=== PATIENT | female | born 1990 | race Caucasian/White ===

== ENCOUNTER 2016-10-09 21:16 | Emergency (ER) | payer OTHER ==
[2016-10-09 21:39] VITALS: BP 129/68; PULSE 93; TEMP 98.3; BMI 36.3
== END 2016-10-09 22:18 | disposition left against medical advice (07) ==
LOC: JERFT 21:16 → JER 21:16 → JERFT 22:18
DX: Z53.21 Procedure and treatment not carried out due to patient leaving prior to being seen by health care provider (principal)
CPT/HCPCS: 99281-25

== ENCOUNTER 2017-03-13 13:31 | Emergency (ER) | payer OTHER ==
[2017-03-13 13:34] VITALS: BP 109/71; PULSE 88; TEMP 98.1; BMI 35.7
--- NOTE | 2017-03-13 13:52 | PDOC ---
History of Present Illness - General Chief Complaint: Chest Pain Stated Complaint: CHEST DISCOMFORT Time Seen by Provider: 03/13/17 13:49 History Source: Patient Exam Limitations: No Limitations - History of Present Illness Initial Comments: 03/13/17 13:49 Patient is a [26-year-old female, no significant medical history currently no medication reports 2 day history of left-sided chest pain. Pain worse at night. Pain is not reproducible, Non radiating. Denies trauma. No SOB, VSS, No radiating pain, no cough, no wheezing, no hemopysis. NO back pain or jaw pain. No fever, no chills. Denies trauma. No palpatations. Unknown if related to eating. No abdominal pain. Past Medical History: Denies. Allergies: No known allergies Medications: None Family History: Non-contributory Social History: Denies smoking, alcohol use, or IVDU Vital signs on arrival are notable for pulse of 96. Review of Systems GENERAL/CONSTITUTIONAL: No fever or chills. No weakness. No weight change. HEAD, EYES, EARS, NOSE AND THROAT: No change in vision. No ear pain or discharge. No sore throat. CARDIOVASCULAR: Left chest pain or shortness of breath. RESPIRATORY: No cough, wheezing, or hemoptysis. GASTROINTESTINAL: No nausea, vomiting, diarrhea or constipation. No rectal bleeding. GENITOURINARY: No dysuria, frequency, or change in urination. MUSCULOSKELETAL: No joint or muscle swelling or pain. No neck or back pain. SKIN AND BREASTS: No rash or easy bruising. NEUROLOGIC: No headache, vertigo, loss of consciousness, or loss of sensation. PSYCHIATRIC: No depression or anxiety. ENDOCRINE: No increased thirst. No abnormal weight change. HEMATOLOGIC/LYMPHATIC: No anemia, easy bleeding, or history of blood clots. ALLERGIC/IMMUNOLOGIC: No hives or skin allergy. No latex allergy. Physical Exam: GENERAL: The patient is awake, alert, and fully oriented, in no acute distress. HEAD: Normal with no signs of trauma. EYES: Pupils equal, round and reactive to light, extraocular movements intact, sclera anicteric, conjunctiva clear. ENT: Ears normal, nares patent, oropharynx clear without exudates. Moist mucous membranes. No uvula deviation NECK: Normal range of motion, supple without lymphadenopathy, JVD, or masses. LUNGS: Breath sounds equal, clear to auscultation bilaterally. No wheezes, and no crackles. HEART: Regular rate and rhythm, normal S1 and S2 without murmur, rub or gallop. ABDOMEN: Soft, nontender, normoactive bowel sounds. No guarding, no rebound. No masses. No bruising or abrasions MUSCULOSKELETAL: Normal range of motion, no edema. No clubbing or cyanosis. No cords, erythema, or tenderness. No CVA Tenderness with fist palpation. NEUROLOGICAL: Cranial nerves II through XII grossly intact. Normal speech, normal gait. SKIN: Warm, Dry, normal turgor, no rashes or lesions noted. 03/13/17 14:15 03/13/17 14:23 Past History - Past Medical History Allergies/Adverse Reactions: Allergies Allergy/AdvReac Type Severity Reaction Status Date / Time No Known Allergies Allergy Verified 03/13/17 13:34 Home Medications: Ambulatory Orders Omeprazole 20 mg PO DAILY #30 capsule. 03/13/17 Asthma: Yes Cancer: No Cardiac Disorders: No Diabetes: No HTN: No Seizures: No Thyroid Disease: No - Immunization History Immunization Up to Date: Yes - Psycho/Social/Smoking Cessation Hx Suicidal Ideation: No Smoking History: Never smoked Have you smoked in the past 12 months: No Number of Cigarettes Smoked Daily: 0 Hx Alcohol Use: No Drug/Substance Use Hx: No Substance Use Type: None Hx Substance Use Treatment: No *Physical Exam - Vital Signs Last Vital Signs Temp Pulse Resp BP Pulse Ox 98.1 F 88 20 109/71 99 03/13/17 13:31 03/13/17 13:31 03/13/17 13:31 03/13/17 13:31 03/13/17 13:31 Heart Score/ECG Review - Electrocardiogram EKG: Normal - Age Age: </= 45 ED Treatment Course - ADDITIONAL ORDERS Additional order review: Laboratory Results 03/13/17 13:46 Urine HCG, Qual Negative - RADIOLOGY Radiology Studies Ordered: Category Date Time Status CHEST PA & LAT [RAD] Stat Radiology 03/13/17 14:58 Taken - Medications Given in the ED: ED Medications Discontinued Medications Generic Name Dose Route Start Last Admin Trade Name Freq PRN Reason Stop Dose Admin Al Hydroxide/Mg Hydroxide 30 ml 03/13/17 14:05 03/13/17 14:37 Mylanta Oral Suspension - PO 03/13/17 14:06 30 ml ONCE ONE Administration Ranitidine HCl 150 mg 03/13/17 14:06 03/13/17 14:37 Zantac - PO 03/13/17 14:07 150 mg ONCE ONE Administration Medical Decision Making - Medical Decision Making 03/13/17 13:51 A/P: Patient with left-sided chest pain, for 2 days denies trauma. No shortness of breath, no radiating pain, pain is not reproducible. Unsure if it's related to meals. Urine ordered, chest x-ray, EKG. Zantac and Maalox. Twelve-lead EKG was performed and reviewed by me. There is normal sinus rhythm with a normal rate of 81. R axis of 58. The intervals are normal. There are no ST or T wave abnormalities. Impression: Normal twelve-lead EKG 03/13/17 14:26 03/13/17 15:37 Feels 100% better after medication still awaiting x-ray results of chest. 03/13/17 16:23 Wet read xray it or for acute cardiopulmonary disease. We'll DC patient home, GERD. Patient reports that she feels 100 percent better. Will DC on Zantac. Follow up with PMD. I discussed the physical exam findings, ancillary test results and final diagnoses with the patient. I answered all of the patient's questions. The patient was satisfied with the care received and felt comfortable with the discharge plan and treatment plan. The patient will call to arrange follow-up and will return to the Emergency Department with any new, persistent or worsening symptoms. *DC/Admit/Observation/Transfer Diagnosis at time of Disposition: GERD (gastroesophageal reflux disease) Qualifiers: Esophagitis presence: without esophagitis Qualified Code(s): K21.9 - Gastro- esophageal reflux disease without esophagitis - Discharge Dispostion Disposition: HOME Condition at time of disposition: Good Admit: No - Prescriptions Prescriptions: Omeprazole 20 mg PO DAILY #30 capsule.dr - Referrals Referrals: Erika Gillette MD [Primary Care Provider] - - Patient Instructions Printed Discharge Instructions: DI for Atypical Chest Pain Additional Instructions: [place] diet Please refrain from fried foods, milk, sugar. If continues recommend follow-up with gastroenterology Recommend follow-up with PMD If any increased pain, shortness of breath, back pain, or any other concerns return to ER - Post Discharge Activity Work/School Note: Back to Work
[2017-03-13] MEDS ORDERED: MAG HYDROX/AL HYDROX/SIMETH 30 ML UNIT-DOSE CUP PO ONE (14:05)
[2017-03-13] MEDS ORDERED: RANITIDINE HCL 150 MG TABLET (FP) PO ONE (14:06)
[2017-03-13] MEDS ORDERED: RANITIDINE HCL 150 MG TABLET (FP) ONE (14:35)
[2017-03-13] MEDS ORDERED: MAG HYDROX/AL HYDROX/SIMETH 30 ML UNIT-DOSE CUP ONE (14:35)
--- NOTE | 2017-03-15 17:29 | EKG ---
Test Reason : Blood Pressure : / mmHG Vent. Rate : 081 BPM Atrial Rate : 081 BPM P-R Int : 138 ms QRS Dur : 088 ms QT Int : 370 ms P-R-T Axes : 039 058 043 degrees QTc Int : 429 ms NORMAL SINUS RHYTHM NORMAL ECG NO PREVIOUS ECGS AVAILABLE Confirmed by MD BENNY, WARD ([id number]) on 03/15/2017 5:29:03 PM Referred By: Confirmed By:WARD ZAPATA MD
== END 2017-03-13 16:51 | disposition home or self-care (01) ==
LOC: JERFT 13:31
DX: K21.9 Gastro-esophageal reflux disease without esophagitis (principal)
CPT/HCPCS: 71020-TC; 84703; 93005; 93010; 99281-25

== ENCOUNTER 2018-12-30 20:44 | Emergency (ER) | payer OTHER ==
[2018-12-30 20:47] VITALS: BMI 34.4
--- NOTE | 2018-12-30 20:49 | PDOC ---
Rapid Medical Evaluation Chief Complaint: Urinary Problem Time Seen by Provider: 12/30/18 20:45 Medical Evaluation: Allergies Allergy/AdvReac Type Severity Reaction Status Date / Time No Known Allergies Allergy Verified 03/13/17 13:34 12/30/18 20:46 28 year old female with left groin pain and urinary symptoms since this morning. denies fevel chills, vaginal bleeding/ discharge. LMP: 11/28/2018 Pe: patient alert ox3 A: groin pain P; ua, urine culture urien Discharge Disposition - Diagnosis Urinary tract infection symptoms - Referrals - Patient Instructions - Post Discharge Activity
[2018-12-30 21:39] LABS: URINE APPEARANCE CLEAR; URINE BACTERIA 268.8 /hpf (NEGATIVE); URINE BILIRUBIN NEGATIVE (NEGATIVE); URINE CASTS 1 /lpf (0-8); URINE COLOR YELLOW; URINE GLUCOSE (UA) NEGATIVE (NEGATIVE); URINE KETONE NEGATIVE (NEGATIVE); URINE LEUK ESTERASE TRACE (NEGATIVE); URINE NITRITE NEGATIVE (NEGATIVE); URINE PROTEIN NEGATIVE (NEGATIVE); URINE RBC 2 /hpf (0-4); URINE UROBILINOGEN 0.2 mg/dL (0.2-1.0); URINE WBC 8 /hpf (0-5)
[2018-12-30] MEDS ORDERED: ACETAMINOPHEN 325 MG TABLET (FP) PO ONE (21:40)
--- NOTE | 2018-12-30 21:42 | PDOC ---
History of Present Illness - General History Source: Patient Exam Limitations: No Limitations <GabrielSwapna - Last Filed: 12/30/18 22:48> <Beverly Osborn - Last Filed: 12/30/18 23:01> - General Chief Complaint: Pain Stated Complaint: PELVIC PAIN Time Seen by Provider: 12/30/18 20:45 Past History - Past Medical History Asthma: Yes Cancer: No Cardiac Disorders: No COPD: No Diabetes: No HTN: No Seizures: No Thyroid Disease: No - Immunization History Immunization Up to Date: Yes - Suicide/Smoking/Psychosocial Hx Smoking History: Never smoked Have you smoked in the past 12 months: No Number of Cigarettes Smoked Daily: 0 Hx Alcohol Use: No Drug/Substance Use Hx: No Substance Use Type: None Hx Substance Use Treatment: No <Swapna Rios - Last Filed: 12/30/18 22:48> <Beverly Osborn - Last Filed: 12/30/18 23:01> - Past Medical History Allergies/Adverse Reactions: Allergies Allergy/AdvReac Type Severity Reaction Status Date / Time No Known Allergies Allergy Verified 12/30/18 20:48 Home Medications: Ambulatory Orders Omeprazole 20 mg PO DAILY #30 capsule. 03/13/17 *Physical Exam - Vital Signs Last Vital Signs Temp Pulse Resp BP Pulse Ox 98.1 F 86 18 135/80 99 12/30/18 20:45 12/30/18 20:45 12/30/18 20:45 12/30/18 20:45 12/30/18 20:45 - Physical Exam General Appearance: No: Apparent Distress Respiratory/Chest: positive: Lungs Clear, Normal Breath Sounds. negative: Respiratory Distress Cardiovascular: positive: Regular Rhythm, Regular Rate, S1, S2. negative: Murmur Female Pelvic Exam: positive: adnexal tenderness (along L adnexa). negative: CMT, discharge, vaginal bleeding Gastrointestinal/Abdominal: positive: Normal Bowel Sounds, Soft. negative: Tender, Distended, Guarding, Rebound Musculoskeletal: negative: CVA Tenderness Neurologic: positive: Fully Oriented, Alert, Normal Mood/Affect <Swapna Rios - Last Filed: 12/30/18 22:48> - Vital Signs Last Vital Signs Temp Pulse Resp BP Pulse Ox 98.1 F 86 18 135/80 99 12/30/18 20:45 12/30/18 20:45 12/30/18 20:45 12/30/18 20:45 12/30/18 20:45 <Beverly Osborn - Last Filed: 12/30/18 23:01> ED Treatment Course - RADIOLOGY Radiology Studies Ordered: Category Date Time Status TRANSVAGINAL ULTRASOUND US [US] Stat Ultrasound 12/30/18 21:32 Ordered <Swapna Rios - Last Filed: 12/30/18 22:48> - ADDITIONAL ORDERS Additional order review: Laboratory Results 12/30/18 21:18 Urine Color Yellow Urine Appearance Clear Urine pH 5.0 Ur Specific [place] 1.016 Urine Protein Negative Urine Glucose (UA) Negative Urine Ketones Negative Urine Blood Negative Urine Nitrite Negative Urine Bilirubin Negative Urine Urobilinogen 0.2 Ur Leukocyte Esterase Trace Urine WBC (Auto) 8 Urine RBC (Auto) 2 Urine Casts (Auto) 1 U Epithel Cells (Auto) 5.0 Urine Bacteria (Auto) 268.8 - Medications Given in the ED: ED Medications Discontinued Medications Generic Name Dose Route Start Last Admin Trade Name Freq PRN Reason Stop Dose Admin Acetaminophen 975 mg 12/30/18 21:40 12/30/18 21:52 Tylenol - PO 12/30/18 21:41 975 mg ONCE ONE Administration <Beverly Osborn - Last Filed: 12/30/18 23:01> Medical Decision Making - Medical Decision Making 28 y/o F hx of asthma, presents with L sided pelvic pain from yesterday. Pain is worse when urinating but does not have burning on urination. Denies fever, chills, sob, cp, abd pain, n/v/d, hematuria, unusual vag discharge. Is sexually active with 1 partner; denies hx of STDs. LNMP 3/15 Consider UTI, ovarian cyst; less concerned for ovarian torsion Plan: UA, UCx, UCG, pelvic sono 12/30/18 21:40 Pelvic ultrasound negative without any acute findings UA negative Patient having no pain after receiving Tylenol Advised f/u with her etl developer Stable for dc 12/30/18 22:48 <Swapna Rios - Last Filed: 12/30/18 22:48> - Medical Decision Making The patient was seen and evaluated in conjunction with midlevel provider under my direct supervision, ancillary studies were reviewed. I agree with the plan as outlined by EZEKIEL Rios. HPI, workup/dispo as outlined. VS reviewed, wnl. pelvic exam by EZEKIEL, noted for left adnexal tenderness, but otherwise unremarkable. clinically low suspicion for pelvic pathology/torsion. Pelvic US unremarkable, no e/o torsion or pelvic pathology, prominant subcm follicles on left UA_WBC <10, unremarkable, no urinary sx to suggest infection, defer abx for now until cultures which is reasonable. prior urine cultures neg. hcg_neg anticipate discharge, supportive care, analgesia and coal unloader f/u. 12/30/18 21:57 12/30/18 22:59 12/30/18 23:00 <Beverly Osborn - Last Filed: 12/30/18 23:01> *DC/Admit/Observation/Transfer - Discharge Dispostion Decision to Admit order: No <Swapna Rios - Last Filed: 12/30/18 22:48> <Beverly Osborn - Last Filed: 12/30/18 23:01> Diagnosis at time of Disposition: Pelvic pain - Discharge Dispostion Disposition: HOME Condition at time of disposition: Stable - Referrals Referrals: Erika Gillette MD [Primary Care Provider] - 2 Days - Patient Instructions Printed Discharge Instructions: DI for Pelvic Pain Additional Instructions: Thank you for choosing [facility]. It was a pleasure taking care of you. Your urine was negative for infection Your pelvic ultrasound was also normal Please follow-up with your etl developer for further evaluation of your symptoms Return to the Emergency Department if your symptoms worsen or persist or have other concerning symptoms. - Post Discharge Activity
[2018-12-30] MEDS ORDERED: ACETAMINOPHEN 325 MG TABLET (FP) ONE (21:48)
[2018-12-30 21:58] LABS: HCG,QUALITATIVE URINE Negative
[2018-12-30 23:14] VITALS: BP 134/78; PULSE 80; TEMP 97.8
== END 2018-12-30 23:00 | disposition home or self-care (01) ==
LOC: JER 20:44
DX: R10.2 Pelvic and perineal pain (principal)
CPT/HCPCS: 76830-TC; 81003; 84703; 87086; 87186; 99282-25

== ENCOUNTER 2019-01-04 00:30 | Emergency (ER) | payer OTHER ==
[2019-01-04 00:51] VITALS: BP 125/80; PULSE 68; TEMP 98.3
--- NOTE | 2019-01-04 00:57 | PDOC ---
History of Present Illness - General Chief Complaint: Sore Throat Stated Complaint: THROAT PAIN Time Seen by Provider: 01/04/19 00:46 History Source: Patient Exam Limitations: No Limitations - History of Present Illness Initial Comments: 01/04/19 00:50 HISTORY OF PRESENT ILLNESS: 28-year-old woman past medical history of asthma presents emergency room for evaluation of sore throat for 2 days. Patient states her child was recently diagnosed with streptococcal pharyngitis is currently being treated with amoxicillin. She reports sharing utensils and water bottles with her daughter prior to her diagnosis. She denies fevers, chills, abdominal pain, nausea, vomiting. No recent travel or sick contacts. PAST MEDICAL HISTORY: asthma SURGICAL HISTORY: Denies ALLERGIES: No known drug allergies REVIEW OF SYSTEMS General/Constitutional: Denies fever or chills. Denies weakness, weight change. HEENT: see HPI Cardiovascular: Denies chest pain or shortness of breath. Respiratory: Denies cough, wheezing, or hemoptysis. Gastrointestinal: Denies nausea, vomiting, diarrhea or constipation. Denies rectal bleeding. Genitourinary: Denies dysuria, frequency, or change in urination. Musculoskeletal: Denies joint or muscle swelling or pain. Denies neck or back pain. Skin and breasts: Denies rash or easy bruising. Neurologic: Denies headache, vertigo, loss of consciousness, or loss of sensation. Psychiatric: Denies depression or anxiety. Endocrine: Denies increased thirst. Denies abnormal weight change. Hematologic/Lymphatic: Denies anemia, easy bleeding, or history of blood clots. Allergic/Immunologic: Denies hives or skin allergy. Denies latex allergy. PHYSICAL EXAM General Appearance: Well-appearing, appropriately dressed. No apparent distress , no intoxication. HEENT: EOMI, PERRLA, normal ENT inspection, normal voice, TMs normal. No conjunctival pallor. No photophobia, scleral icterus. Oropharynx erythematous with 2+ tonsils and exudates present bilaterally. No lesions present in the oropharynx. Halitosis present. Neck: Supple. Trachea midline. No tenderness, rigidity, carotid bruit, stridor , or thyromegaly. Tender anterior cervical lymphadenopathy noted. Respiratory/Chest: Lungs CTAB. No shortness of breath, chest tenderness, respiratory distress, accessory muscle use. No crackles, rales, rhonchi, stridor , wheezing, dullness Cardiovascular: RRR. S1, S2. No JVD, murmur, bradycardia, tachycardia. Vascular Pulses: Dorsalis-Pedis (R): 2+, Dorsalis-Pedis (L): 2+ 01/04/19 00:55 Past History - Past Medical History Allergies/Adverse Reactions: Allergies Allergy/AdvReac Type Severity Reaction Status Date / Time No Known Allergies Allergy Verified 01/04/19 00:47 Home Medications: Ambulatory Orders Omeprazole 20 mg PO DAILY #30 capsule. 03/13/17 Amoxicillin - [Amoxicillin 500mg Capsule -] 500 mg PO BID #20 capsule 01/04/19 Asthma: Yes Cancer: No Cardiac Disorders: No COPD: No Diabetes: No HTN: No Seizures: No Thyroid Disease: No - Immunization History Immunization Up to Date: Yes - Suicide/Smoking/Psychosocial Hx Smoking History: Unknown if ever smoked Have you smoked in the past 12 months: No Number of Cigarettes Smoked Daily: 0 Hx Alcohol Use: No Drug/Substance Use Hx: No Substance Use Type: None Hx Substance Use Treatment: No *Physical Exam - Vital Signs Last Vital Signs Temp Pulse Resp BP Pulse Ox 98.3 F 68 17 125/80 98 01/04/19 00:44 01/04/19 00:44 01/04/19 00:44 01/04/19 00:44 01/04/19 00:44 Medical Decision Making - Medical Decision Making 01/04/19 00:54 A/P: 28-year-old woman with pharyngitis 2+ tonsils present bilaterally Exudate present to bilateral tonsils No lesions are present in the oropharynx Patient with tender anterior cervical lymphadenopathy Halitosis present Clinically the patient has a streptococcal pharyngitis and given proximity to her daughter with a recent positive strep test and current antibiotic treatment I'll treat the patient with amoxicillin 500 mg twice a day for the next 10 days. Patient is in agreement with the plan and is satisfied with the care received. *DC/Admit/Observation/Transfer Diagnosis at time of Disposition: Pharyngitis Qualifiers: Pharyngitis/tonsillitis etiology: unspecified etiology Qualified Code(s): J02.9 - Acute pharyngitis, unspecified - Discharge Dispostion Disposition: HOME Condition at time of disposition: Stable Decision to Admit order: No - Prescriptions Prescriptions: Amoxicillin - [Amoxicillin 500mg Capsule -] 500 mg PO BID #20 capsule - Referrals Referrals: Erika Gillette MD [Primary Care Provider] - - Patient Instructions Additional Instructions: Take amoxicillin as prescribed. Salt water garggles. Throw away your toothbrush in 3 days and start using a new toothbrush. No sharing of drinks, utensils or toothbrushes. Take Motrin as directed by gallery or museum attendant's instructions. Return to ED for worsening fevers, worsening sore throat, chest pain, shortness of breath or any other concerns. - Post Discharge Activity Forms/Work/School Notes: Back to Work
[2019-01-04 01:09] VITALS: BMI 34.4
== END 2019-01-04 01:09 | disposition home or self-care (01) ==
LOC: JER 00:30
DX: J02.9 Acute pharyngitis, unspecified (principal)
CPT/HCPCS: 99281-25

== ENCOUNTER 2019-04-04 02:27 | Emergency (ER) | payer OTHER ==
[2019-04-04 02:59] VITALS: BP 115/77; PULSE 90; TEMP 98.9; BMI 34.9
--- NOTE | 2019-04-04 03:12 | PDOC ---
History of Present Illness - General Chief Complaint: Pain, Acute Stated Complaint: ABD PAIN Time Seen by Provider: 04/04/19 03:09 Past History - Past Medical History Allergies/Adverse Reactions: Allergies Allergy/AdvReac Type Severity Reaction Status Date / Time No Known Allergies Allergy Verified 04/04/19 02:51 Home Medications: Ambulatory Orders Omeprazole 20 mg PO DAILY #30 capsule. 03/13/17 Cephalexin Monohydrate [Keflex -] 500 mg PO BID #13 capsule 04/04/19 Asthma: Yes Cancer: No Cardiac Disorders: No COPD: No Diabetes: No HTN: No Seizures: No Thyroid Disease: No - Reproductive History Is Patient Now?: No Therapeutic (s) & number: No - Immunization History Immunization Up to Date: Yes - Suicide/Smoking/Psychosocial Hx Smoking History: Never smoked Have you smoked in the past 12 months: No Number of Cigarettes Smoked Daily: 0 Information on smoking cessation initiated: No Hx Alcohol Use: No Drug/Substance Use Hx: No Substance Use Type: None Hx Substance Use Treatment: No *Physical Exam - Vital Signs Last Vital Signs Temp Pulse Resp BP Pulse Ox 98.9 F 90 20 115/77 97 04/04/19 02:35 04/04/19 02:35 04/04/19 02:35 04/04/19 02:35 04/04/19 02:35 Medical Decision Making - Medical Decision Making HPI: 29yo F with PMH of asthma presenting with dysuria. Patient states it started this morning around 9 or 10am. She describes it as a "burning." She has urinary frequency and has been going to the bathroom to urinate every 20-30 minutes. She reports that when she urinates only a small amount of urine comes out. Has been eating and drinking normally. Last bowel movement was today and was a normal formed brown stool without blood. Last menstrual period was and patient usually has regular periods. No fevers, chills, chest pain, or shortness of breath. PCP: Dr. Erika Gillette advanced practice nurse: None ROS: Constitutional: no fever, no chills HEENT: no throat pain, no dysphagia Cardiovascular: no chest pain, no palpitations Respiratory: no cough, no shortness of breath Gastrointestinal: no abdominal pain, no nausea Genitourinary: +dysuria, +frequency Musculoskeletal: no myalgia, no arthralgia Skin: no rash, no itching Neurologic: no headache, no weakness PE: General: Awake, alert, and fully oriented, in no acute distress Head: No signs of trauma Eyes: EOMI, sclera anicteric ENT: Moist mucus membranes Neck: Normal ROM, supple Lungs: Lungs clear, Normal breath sounds Cardio: Regular rhythm, S1 and S2 present Abdomen: Soft, nontender. No guarding, no rebound, no masses. No CVA tenderness. Extremities: Normal range of motion, Distal pulses present SKIN: Warm, Dry, normal turgor Neurologic: Cranial nerves II through XII grossly intact. Normal speech, sensation, strength, coordination, and gait. Plan: DDX including but not limited to UTI, pyelonephritis, , cystitis Laboratory Tests 04/04/19 04/04/19 02:52 02:52 Urine Color Yellow Urine Appearance Clear Urine pH 5.0 Ur Specific [place] 1.023 Urine Protein Negative Urine Glucose (UA) Negative Urine Ketones Negative Urine Blood Trace Urine Nitrite Positive H Urine Bilirubin Negative Urine Urobilinogen 0.2 Ur Leukocyte Esterase Negative Urine WBC (Auto) 2 Urine RBC (Auto) 1 Urine Casts (Auto) 4 U Epithel Cells (Auto) 1.4 Urine Bacteria (Auto) 693.9 Urine HCG, Qual Negative Negative test UA positive for bacteria and nitrites. Although she only has 2 WBC, will treat for symptomatic bacteriuria with keflex 975mg tylenol for pain Patient discharged with parking lot chauffeur referral as she does not have one currently *DC/Admit/Observation/Transfer Diagnosis at time of Disposition: UTI (urinary tract infection) Qualifiers: Urinary tract infection type: site unspecified Hematuria presence: without hematuria Qualified Code(s): N39.0 - Urinary tract infection, site not specified - Discharge Dispostion Disposition: HOME Condition at time of disposition: Stable - Prescriptions Prescriptions: Cephalexin Monohydrate [Keflex -] 500 mg PO BID #13 capsule - Referrals Referrals: Erika Gillette MD [Primary Care Provider] - Tiffanie Riley MD [Staff Physician] - - Patient Instructions Additional Instructions: You came into the ED for pain when you urinate. Urinalysis shows you have a urinary tract infection. test was negative. Antibiotics prescription has been sent to your pharmacy. Follow up with your primary care physician in one week to discuss this ED visit and for further evaluation of your symptoms. Your care is not complete until you do so. Call and make an appointment. We have referred you to an parking lot chauffeur doctor. Call and make an appointment. Your workup is not complete until you do so. Immediate medical attention is required if you experience: high fevers, chills , persistent vomiting, stop urinating, or any new or concerning symptoms.If you think you have an emergency, call for medical help right away. - Post Discharge Activity
--- NOTE | 2019-04-04 03:15 | PDOC ---
Attending Attestation - Resident Resident Name: Seda Grijalva - ED Attending Attestation I have performed the following: I have examined & evaluated the patient, The case was reviewed & discussed with the resident, I agree w/resident's findings & plan - HPI HPI: 04/04/19 03:49 Pt comes with lower abd pain and dysuria - Physicial Exam PE: 04/04/19 03:50 Agree with resident exam - Medical Decision Making 04/04/19 03:50 Preg negative. Nitrite positive urine. Pt can go home with abx/keflex.
[2019-04-04 03:24] LABS: EPI CELLS 1.4 /HPF (0-5/HPF); HYALINE CASTS 4 /lpf (0-8); URINE APPEARANCE CLEAR; URINE BACTERIA 693.9 /hpf (NEGATIVE); URINE BILIRUBIN NEGATIVE (NEGATIVE); URINE COLOR YELLOW; URINE GLUCOSE (UA) NEGATIVE (NEGATIVE); URINE KETONE NEGATIVE (NEGATIVE); URINE LEUK ESTERASE NEGATIVE (NEGATIVE); URINE NITRITE POSITIVE (NEGATIVE); URINE PROTEIN NEGATIVE (NEGATIVE); URINE RBC 1 /hpf (0-4); URINE UROBILINOGEN 0.2 mg/dL (0.2-1.0); URINE WBC 2 /hpf (0-5)
[2019-04-04] MEDS ORDERED: ACETAMINOPHEN 325 MG TABLET (FP) PO ONE (03:26)
[2019-04-04] MEDS ORDERED: CEPHALEXIN MONOHYDRATE 500 MG CAPSULE (UD) PO ONE (03:47)
[2019-04-04] MEDS ORDERED: ACETAMINOPHEN 325 MG TABLET (FP) ONE (03:52)
[2019-04-04] MEDS ORDERED: CEPHALEXIN MONOHYDRATE 500 MG CAPSULE (UD) ONE (03:52)
== END 2019-04-04 04:03 | disposition home or self-care (01) ==
LOC: JER 02:27
DX: N39.0 Urinary tract infection, site not specified (principal); J45.909 Unspecified asthma, uncomplicated
CPT/HCPCS: 81003; 84703; 87086; 87186; 99283-25

== ENCOUNTER 2019-04-06 12:40 | Emergency (ER) | payer OTHER ==
[2019-04-06] MEDS ORDERED: SODIUM CHLORIDE 1,000 ML IV STA (12:48)
--- NOTE | 2019-04-06 12:48 | PDOC ---
Rapid Medical Evaluation Time Seen by Provider: 04/06/19 12:47 Medical Evaluation: Allergies Allergy/AdvReac Type Severity Reaction Status Date / Time No Known Allergies Allergy Verified 04/04/19 02:51 04/06/19 12:47 I have performed a brief in-person evaluation of this patient. 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 I have ordered the following: cardiac w/u The patient will proceed to the ED for further evaluation. Discharge Disposition - Diagnosis Syncope and collapse - Referrals - Patient Instructions - Post Discharge Activity
[2019-04-06 12:50] VITALS: TEMP 98.3; BMI 34.1
--- NOTE | 2019-04-06 13:07 | PDOC ---
History of Present Illness <Beverly Osborn - Last Filed: 04/06/19 14:50> - History of Present Illness Initial Comments: 04/06/19 13:36 29y/o F with hx of asthma and syncopal episode (7yrs ago) presents to the ED after 3 episodes of syncope in the last week. Her last episode was about 2-3 hours ago today. Incidents are preceded by dizziness and occur both when sitting and standing.She is unaware how long her LOC lasts. After regaining consciousness, she gets a right sided throbbing headache which resolves after 20 mins. She is not aware of any exacerbating factors. She feels nauseous but denies any episodes of emesis. She denies any fevers,chills, blurry vision, weakness, numbness, tingling, neck pain or stiffness. 04/06/19 13:41 <Kaleb Parra - Last Filed: 04/06/19 16:32> - General Chief Complaint: Syncope/Near Syncope Stated Complaint: PASSED OUT 1 HR AGO Time Seen by Provider: 04/06/19 12:47 Past History <Beverly Osborn - Last Filed: 04/06/19 14:50> - Past Medical History Asthma: Yes Cancer: No Cardiac Disorders: No COPD: No Diabetes: No HTN: No Seizures: No Thyroid Disease: No - Reproductive History Therapeutic (s) & number: No - Immunization History Immunization Up to Date: Yes - Suicide/Smoking/Psychosocial Hx Smoking History: Never smoked Have you smoked in the past 12 months: No Number of Cigarettes Smoked Daily: 0 Hx Alcohol Use: No Drug/Substance Use Hx: No Substance Use Type: None Hx Substance Use Treatment: No <Kaleb Parra - Last Filed: 04/06/19 16:32> - Past Medical History Allergies/Adverse Reactions: Allergies Allergy/AdvReac Type Severity Reaction Status Date / Time No Known Allergies Allergy Verified 04/04/19 02:51 Home Medications: Ambulatory Orders NK [No Known Home Medication] 04/06/19 Review of Systems - Review of Systems All Other Systems: Reviewed and Negative <Kaleb Parra - Last Filed: 04/06/19 16:32> *Physical Exam - Vital Signs Last Vital Signs Temp Pulse Resp BP Pulse Ox 98.3 F 80 18 117/81 100 04/06/19 12:47 04/06/19 12:47 04/06/19 12:47 04/06/19 12:47 04/06/19 12:47 <Beverly Osborn - Last Filed: 04/06/19 14:50> - Vital Signs Last Vital Signs Temp Pulse Resp BP Pulse Ox 98.3 F 80 18 117/81 100 04/06/19 12:47 04/06/19 12:47 04/06/19 12:47 04/06/19 12:47 04/06/19 12:47 - Physical Exam General Appearance: Yes: Nourished, Appropriately Dressed. No: Apparent Distress HEENT: positive: EOMI, Normal Voice. negative: Scleral Icterus (R), Scleral Icterus (L) Respiratory/Chest: positive: Lungs Clear, Normal Breath Sounds. negative: Chest Tender, Respiratory Distress, Accessory Muscle Use, Crackles, Rales, Wheezing Cardiovascular: positive: Regular Rhythm, Regular Rate, S1, S2. negative: JVD Gastrointestinal/Abdominal: positive: Normal Bowel Sounds, Soft. negative: Pulsatile Mass, Guarding, Rebound, Tenderness Musculoskeletal: positive: Normal Inspection. negative: CVA Tenderness, CVA Tenderness (R), CVA Tenderness (L), Decreased Range of Motion Extremity: positive: Normal Capillary Refill, Normal Inspection, Normal Range of Motion Integumentary: positive: Normal Color, Dry, Warm Neurologic: positive: draw string knotter II-XII NML intact, Fully Oriented, Alert, Normal Mood/ Affect, Normal Response, Motor Strength 5/5, Other (negative finger to nose test.). negative: Facial Droop, Numbness, Sensory Deficit, Confused, Disoriented, Depressed Affect <Kaleb Parra - Last Filed: 04/06/19 16:32> Heart Score/ECG Review - History History: Moderately suspicious <Kaleb Parra - Last Filed: 04/06/19 16:32> ED Treatment Course - LABORATORY CBC & Chemistry Diagram: 04/06/19 13:00 04/06/19 13:00 - ADDITIONAL ORDERS Additional order review: Laboratory Results 04/06/19 04/06/19 04/06/19 13:00 13:00 13:00 PT with INR 11.60 INR 0.98 Sodium Potassium Chloride Carbon Dioxide Anion Gap BUN Creatinine Est GFR (CKD-EPI)AfAm Est GFR (CKD-EPI)NonAf Random Glucose Calcium Magnesium Total Bilirubin AST ALT Alkaline Phosphatase Creatine Kinase Troponin I Total Protein Albumin Serum , Qual Negative Blood Type A POSITIVE Antibody Screen Negative 04/06/19 13:00 PT with INR INR Sodium 142 Potassium 3.8 Chloride 108 H Carbon Dioxide 28 Anion Gap 6 L BUN 10.9 Creatinine 0.8 Est GFR (CKD-EPI)AfAm 117.10 Est GFR (CKD-EPI)NonAf 101.04 Random Glucose 88 Calcium 8.5 Magnesium 2.1 Total Bilirubin 0.3 AST 16 ALT 23 Alkaline Phosphatase 70 Creatine Kinase 64 Troponin I < 0.02 Total Protein 7.4 Albumin 3.2 L Serum , Qual Blood Type Antibody Screen 04/06/19 13:00 RBC 4.98 MCV 84.5 MCHC 32.5 RDW 13.7 MPV 10.0 Neutrophils % 36.3 L D Lymphocytes % 48.1 H D Monocytes % 12.4 H Eosinophils % 2.0 Basophils % 1.2 - Medications Given in the ED: ED Medications Discontinued Medications Generic Name Dose Route Start Last Admin Trade Name Freq PRN Reason Stop Dose Admin Sodium Chloride 1,000 mls @ 1,000 mls/hr 04/06/19 12:48 04/06/19 13:34 Normal Saline - IV 04/06/19 13:47 1,000 mls/hr ASDIR STA Administration <Beverly Osobrn - Last Filed: 04/06/19 14:50> - LABORATORY CBC & Chemistry Diagram: 04/06/19 13:00 04/06/19 13:00 <Kaleb Parra - Last Filed: 04/06/19 16:32> Medical Decision Making - Medical Decision Making 04/06/19 13:54 29 y/o F with hx of Asthma presenting to the ED with syncope Ddx: ACS vs vasovagal syncope vs dehydration vs arrthymia vs -[place] syncope rule score: Pt. in low risk group for serious outcomes EKG: sinus rhythm, normal EKG - Other tests ordered: Upreg, cbc, cmp,magnesium, pt/inr, cardiac profile. -white count at, 4.6, test is negative 04/06/19 15:41 Pt. discharged home with instructions to follow up with PCP, house worker general and neurologist for further evaluation. <Kaleb Parra - Last Filed: 04/06/19 16:32> *DC/Admit/Observation/Transfer - Discharge Dispostion Decision to Admit order: No <Beverly Osborn - Last Filed: 04/06/19 14:50> <Kaleb Parra - Last Filed: 04/06/19 16:32> Diagnosis at time of Disposition: Syncope and collapse - Referrals Referrals: Erika Gillette MD [Staff Physician] - Jose Key MD [Staff Physician] - Jonh Campbell MD [Staff Physician] - - Patient Instructions Printed Discharge Instructions: DI for Syncope in Adults (Fainting) Additional Instructions: Have someone stay with you until you feel stable. Do not drive, operate machinery, or play sports until your caregiver says it is okay. Keep all follow- up appointments as directed by your caregiver. Lie down right away if you start feeling like you might faint. Breathe deeply and steadily. Wait until all the symptoms have passed.Drink enough fluids to keep your urine clear or pale yellow. If you are taking blood pressure or heart medicine, get up slowly, taking several minutes to sit and then stand. This can reduce dizziness. SEEK IMMEDIATE MEDICAL CARE IF: You have a severe headache. You have unusual pain in the chest, abdomen, or back. You are bleeding from the mouth or rectum, or you have a black or tarry stool. You have an irregular or very fast heartbeat. You have pain with breathing. You have repeated fainting or seizure- like jerking during an episode. You faint when sitting or lying down. You have confusion. You have difficulty walking. You have severe weakness. You have vision problems. If you fainted, call your local emergency services - do not drive yourself to the hospital.We have provided referrals to a house worker general and a neurologist. You can see these doctors or check with your insurance company for a list of doctors. Your care is not complete until you are evaluated by these doctors and a primary care doctor.
--- NOTE | 2019-04-06 13:11 | PDOC ---
*Physical Exam - Vital Signs Last Vital Signs Temp Pulse Resp BP Pulse Ox 98.3 F 80 18 117/81 100 04/06/19 12:47 04/06/19 12:47 04/06/19 12:47 04/06/19 12:47 04/06/19 12:47 ED Treatment Course - LABORATORY CBC & Chemistry Diagram: 04/06/19 13:00 04/06/19 13:00 Medical Decision Making - Medical Decision Making 04/06/19 13:19 Patient seen and examined with Dr. Parra (PGY-1) 04/06/19 13:26 Lab contacted to add on qualitative serum 04/06/19 13:53 29 year old female with no significant PMH present to our ED w/syncopal episode. Patient reports three syncopal episodes over the last week. The first last Saturday while sitting and eating, patient reports she noticed a darkening of the room. Patient had a repeat episode Saturday and then today around 11 a.m. - during the last two episodes patient was standing and brushing her teeth. Today the patient recall waking up on the bathroom floor on her back with her daughter standing over her crying. Reports post syncopal headache that is R sided and throbbing that last 20 minutes. H/o syncopal episode 7 years ago while living in the [place], patient states she had some imaging but can't recall any follow-up evaluation. VS unremarkable, no neurologic deficit noted no exam. Will evaluate for vasovagal vs. arrythmia vs , r/o ACS. Labs, Orthostatic VS pending. 04/06/19 13:59 EKG non-ischemic as documented in EKG section of EMR 04/06/19 14:31 CBC, CMP unremarkable Lab contacted for serum 04/06/19 15:19 Orthostatic negative Patient is safe for discharge home with neurology and cardiology follow-up. Clinical Impression: syncope possibly 2/2 to vasovagal *DC/Admit/Observation/Transfer Diagnosis at time of Disposition: Syncope and collapse - Discharge Dispostion Disposition: HOME Condition at time of disposition: Good - Referrals Referrals: Erika Gillette MD [Primary Care Provider] - Jonh Campbell MD [Staff Physician] - Jose Key MD [Staff Physician] - - Patient Instructions Printed Discharge Instructions: DI for Syncope in Adults (Fainting) Additional Instructions: We have provided referrals to a fine arts model and a neurologist. You can see these doctors or check with your insurance company for a list of doctors. Your care is not complete until you are evaluated by these doctors and your primary care doctor. Please make an appointment for evaluation with your primary care doctor in the next one week. Have someone stay with you until you feel stable. Do not drive, operate machinery, or play sports until your primary care doctor says it is okay. Keep all follow-up appointments as directed by your primary care doctor. Lie down right away if you start feeling like you might faint. Breathe deeply and steadily. Wait until all the symptoms have passed.Drink enough fluids to keep your urine clear or pale yellow. If you are taking blood pressure or heart medicine, get up slowly, taking several minutes to sit and then stand. This can reduce dizziness. SEEK IMMEDIATE MEDICAL CARE IF: You have a severe headache. You have unusual pain in the chest, abdomen, or back. You are bleeding from the mouth or rectum, or you have a black or tarry stool. You have an irregular or very fast heartbeat. You have pain with breathing. You have repeated fainting or seizure- like jerking during an episode. You faint when sitting or lying down. You have confusion. You have difficulty walking. You have severe weakness. You have vision problems. If you fainted, call your local emergency services - do not drive yourself to the hospital. - Post Discharge Activity
[2019-04-06 13:21] LABS: BASO % 1.2 % (0-2.0); HEMATOCRIT 42.1 % (32.4-45.2); HEMOGLOBIN 13.7 GM/dL (10.7-15.3); LYMPH % 48.1 % (8-40); MCH 27.5 pg (25.7-33.7); MCHC 32.5 g/dl (32.0-36.0); MEAN CELL VOLUME 84.5 fl (80-96); MONO % 12.4 % (3.8-10.2); NEUT % 36.3 % (42.8-82.8); PLATELET COUNT 316 K/MM3 (134-434); RBC 4.98 M/mm3 (3.60-5.2); RDW 13.7 % (11.6-15.6); WHITE BLOOD COUNT 4.6 K/mm3 (4.0-10.0)
[2019-04-06 13:37] LABS: INR 0.98 (0.83-1.09); PROTHROMBIN TIME (PATIENT) 11.6 SEC (9.7-13.0)
[2019-04-06 14:03] LABS: ALBUMIN 3.2 g/dl (3.4-5.0); ALK PHOS 70 U/L (45-117); ANION GAP 6 MMOL/L (8-16); BILIRUBIN,TOTAL 0.3 mg/dL (0.2-1); BLOOD UREA NITROGEN 10.9 mg/dL (7-18); CALCIUM 8.5 mg/dL (8.5-10.1); CHLORIDE 108 mmol/L (98-107); CO2 28 mmol/L (21-32); CREATININE 0.8 mg/dL (0.55-1.3); GLUCOSE,RANDOM 88 mg/dL (74-106); MAGNESIUM 2.1 mg/dL (1.8-2.4); POTASSIUM 3.8 mmol/L (3.5-5.1); SGOT/AST 16 U/L (15-37); SGPT/ALT 23 U/L (13-61); SODIUM 142 mmol/L (136-145); TOT PROT 7.4 g/dl (6.4-8.2)
--- NOTE | 2019-04-06 14:48 | PDOC ---
Documentation entered by Kelsie Angel SCRIBE, acting as scribe for Beverly Osborn MD. Beverly Osborn MD: This documentation has been prepared by the scribe, Kelsie Angel SCRIBE, under my direction and personally reviewed by me in its entirety. I confirm that the documentation accurately reflects all work, treatment, procedures, and medical decision making performed by me. Attending Attestation - Resident Resident Name: Kaleb Parra - ED Attending Attestation I have performed the following: I have examined & evaluated the patient, The case was reviewed & discussed with the resident, I agree w/resident's findings & plan, Exceptions are as noted - HPI HPI: 04/06/19 14:20 The patient is a 29-year-old female, with a past medical history of asthma, syncopal episode (7 years ago), who presents to the ED s/p syncopal episode 2-3 hours prior to presentation. The patient also experienced 2 other syncopal episodes this past week. She states that during these episodes she initially feels dizzy and loses consciousness, but she is unsure how long she is out for. She reports experiencing a RT-sided headache once she regains consciousness. The headache is throbbing in nature and lasts for approximately 20 minutes before resolving on its own. She reports nausea, but no vomiting. The patient denies any fevers, chills, vomiting, diarrhea, constipation, or abdominal pain. Denies any chest pain, palpitations, or shortness of breath. Denies any vision changes. Denies any changes in strength or sensation. Allergies: NKA Social History: None reported. Surgical History: None reported. - Physicial Exam PE: 04/06/19 14:21 NAD, well appearing, oriented appropriately, clear speech. EOMI, PERRL, MMM, nl conjunctiva, anicteric; neck supple. lungs clear, RRR, no murmur abdomen soft nontender. Back nontender. VELASQUEZ x4, no focal neuro deficits. No peripheral edema. normal color for ethnicity, WWP. no calf tenderness 04/06/19 14:42 04/06/19 14:47 - Medical Decision Making 04/06/19 14:42 See HPI for details. Prior notes reviewed, including admissions, discharges and consultations. Vital signs reviewed, wnl. Vital Signs Temp Pulse Resp BP Pulse Ox 98.3 F 80 18 117/81 100 04/06/19 12:47 04/06/19 12:47 04/06/19 12:47 04/06/19 12:47 04/06/19 12:47 Differential diagnosis includes interval abnormalities including short QTC or long QT syndrome, WPW, conduction abnormality, Brugada, ACS, PE, arrhythmia, vasovagal episode, syncope, seizure, dehydration, hypovolemia, electorally/metabolic derangements. Clinically doubt based on history and physical pulmonary embolism or ACS/cardiac etiology given she had no chest pain or shortness of breath. Symptoms are most consistent with a vasovagal episode as she just woke up from bed got up to brush her teeth. No seizure activity or incontinence. No prodromal symptoms. She had just woken up and did not eat anything this morning when she went to the bathroom and that's where she had passed out electrolyte disturbances, metabolic derangement. seizure EKG normal sinus rhythm at 82 bpm, no interval abnormalities, narrow QRS, ST and T wave segments and morphology normal. Nonspecific T wave abnormalities ED course -interventions: IVF - labs and lytes wnl, EKG sinus rhythm, no ischemia or interval/arrhythmic derangements. clinically improved, neuro intact, feels improved, able to ambulate no cp/sob, asymptomatic. advised hydration, PO intake. avoid triggers. cards/neuro and PMD followup for further eval of the syncope. Pt to be discharged in stable condition. Patient made aware of clinical impression, treatment recommendations and disposition plan, return precautions discussed (including but not limited to new or persistent/worsening symptoms, pain, fevers, or signs of infection, chest pain, respiratory distress, inability to tolerate oral intake, dehydration, syncope, or neurologic changes) . Follow up with PMD and/or specialists as recommended, follow up information provided, take medications as instructed for duration of time. continue with supportive care, avoid triggers and precipitants. All questions answered to patient's satisfaction and expressed understanding and comfort with this. At the time of discharge, the patient is alert, clinically improved, tolerating po and verbalizes understanding of instructions, satisfied with the care received and felt comfortable with the plan. Patient does not suffer from an acute life- threatening medical condition at this time and is safe for outpatient follow- up. 04/06/19 14:51 Heart Score/ECG Review #1 ECG reviewed & interpreted by me at: 12:40 General ECG Interpretation: Sinus Rhythm, Normal Rate, Normal Intervals Compared to previous ECG there are: No significant change 04/06/19 14:53 EKG normal sinus rhythm at 82 bpm, no interval abnormalities, narrow QRS, ST and T wave segments and morphology normal. Nonspecific T wave abnormalities
[2019-04-06 15:12] VITALS: BP 107/70; PULSE 83
--- NOTE | 2019-04-06 17:24 | EKG ---
Test Reason : Blood Pressure : / mmHG Vent. Rate : 082 BPM Atrial Rate : 082 BPM P-R Int : 150 ms QRS Dur : 090 ms QT Int : 368 ms P-R-T Axes : 024 043 026 degrees QTc Int : 429 ms NORMAL SINUS RHYTHM NORMAL ECG WHEN COMPARED WITH ECG OF 13-MAR-2017 13:41, NO SIGNIFICANT CHANGE WAS FOUND Confirmed by DIANE GROSSMAN MD ([id number]) on 04/06/2019 5:23:59 PM Referred By: Confirmed By:DIANE GROSSMAN MD
== END 2019-04-06 16:09 | disposition home or self-care (01) ==
LOC: JER 12:40
PROC: 3E0337Z Introduction of Electrolytic and Water Balance Substance into Peripheral Vein, Percutaneous Approach (ICD-10-PCS; principal; 2019-04-06)
DX: R55 Syncope and collapse (principal)
CPT/HCPCS: 36415; 80053; 82550; 83735; 84484; 84703; 85025; 85610; 86850; 86900; 86901; 93005; 93010; 96360; 99283-25; J7030

== ENCOUNTER 2019-04-27 05:59 | Emergency (ER) | payer OTHER ==
[2019-04-27 06:21] VITALS: BP 127/82; PULSE 82; TEMP 98.3; BMI 35.9
--- NOTE | 2019-04-27 06:27 | PDOC ---
History of Present Illness - General Chief Complaint: Pain Stated Complaint: ABD PAIN/2MO . Time Seen by Provider: 04/27/19 06:20 - History of Present Illness Initial Comments: 04/27/19 06:21 29f with pmh of asthma and UTI presents with lower right pelvic pain that started when she woke up this morning. In addition her period started 3 hours ago. Last one was a month ago. States that she not "at least i dont think so". Diagnosed and treated for UTI last month in this ED. No fever/chill/n/v/d Past History - Past Medical History Allergies/Adverse Reactions: Allergies Allergy/AdvReac Type Severity Reaction Status Date / Time No Known Allergies Allergy Verified 04/04/19 02:51 Home Medications: Ambulatory Orders NK [No Known Home Medication] 04/06/19 Asthma: Yes Cancer: No Cardiac Disorders: No COPD: No Diabetes: No HTN: No Seizures: No Thyroid Disease: No - Reproductive History Therapeutic (s) & number: No - Immunization History Immunization Up to Date: Yes - Suicide/Smoking/Psychosocial Hx Smoking History: Never smoked Have you smoked in the past 12 months: No Number of Cigarettes Smoked Daily: 0 Hx Alcohol Use: No Drug/Substance Use Hx: No Substance Use Type: None Hx Substance Use Treatment: No Review of Systems - Review of Systems Able to Perform ROS?: Yes Is the patient limited Kazakh proficient: No Constitutional: No: Symptoms Reported HEENTM: No: Symptoms Reported Respiratory: No: Symptoms reported Cardiac (ROS): No: Symptoms Reported ABD/GI: Yes: See HPI : No: Symptoms Reported Musculoskeletal: No: Symptoms Reported All Other Systems: Reviewed and Negative *Physical Exam - Vital Signs Last Vital Signs Temp Pulse Resp BP Pulse Ox 98.3 F 82 19 127/82 100 04/27/19 06:12 04/27/19 06:12 04/27/19 06:12 04/27/19 06:12 04/27/19 06:12 - Physical Exam General Appearance: Yes: Obese HEENT: positive: EOMI, CHRIS, Normal ENT Inspection Respiratory/Chest: positive: Lungs Clear, Normal Breath Sounds. negative: Chest Tender, Respiratory Distress Cardiovascular: positive: Regular Rhythm, Regular Rate, S1, S2 Gastrointestinal/Abdominal: positive: Normal Bowel Sounds, Tender (right pelvic pain/RLQ ), Guarding, Other (negative psoas and obturator sign.) Musculoskeletal: positive: Normal Inspection. negative: CVA Tenderness, CVA Tenderness (R), CVA Tenderness (L) Extremity: positive: Normal Capillary Refill, Normal Inspection, Normal Range of Motion Integumentary: positive: Normal Color, Dry, Warm Neurologic: positive: Fully Oriented, Alert, Normal Mood/Affect, Normal Response , Motor Strength 5/5 Medical Decision Making - Medical Decision Making 04/27/19 06:29 29f with RLQ/pelvic pain. ectopic vs appendicitis vs kidney stone vs uti vs pyelo vs ovarian cyst No fever makes appi less likely, will check wbc. Checking UA/UC serum preg. Pelvic US to r/o torsion/ovarian etiology. 04/27/19 07:10 Patient signed out to Dr. Flood *DC/Admit/Observation/Transfer Diagnosis at time of Disposition: Right lower quadrant abdominal pain - Referrals Referrals: Erika Gillette MD [Primary Care Provider] - - Patient Instructions - Post Discharge Activity
--- NOTE | 2019-04-27 06:34 | PDOC ---
Attending Attestation - Resident Resident Name: Yoel Anna - ED Attending Attestation I have performed the following: I have examined & evaluated the patient, The case was reviewed & discussed with the resident, I agree w/resident's findings & plan - HPI HPI: 04/27/19 06:33 Pt comes with right pelvic pain. - Physicial Exam PE: 04/27/19 06:33 Agree with resident pain. - Medical Decision Making 04/27/19 06:34 Pt has her menses. 04/27/19 07:01 Labs pending and she will be seen by the day team
[2019-04-27 06:56] LABS: BASO % 0.5 % (0-2.0); EOS % 1.3 % (0-4.5); HEMATOCRIT 42.5 % (32.4-45.2); LYMPH % 50.5 % (8-40); MCH 27.6 pg (25.7-33.7); MCHC 32.9 g/dl (32.0-36.0); MEAN CELL VOLUME 83.9 fl (80-96); MEAN PLT VOLUME 10.1 fl (7.5-11.1); MONO % 13.7 % (3.8-10.2); PLATELET COUNT 310 K/MM3 (134-434); RBC 5.07 M/mm3 (3.60-5.2); RDW 13.7 % (11.6-15.6); WHITE BLOOD COUNT 4.1 K/mm3 (4.0-10.0)
--- NOTE | 2019-04-27 07:14 | PDOC ---
*Physical Exam - Vital Signs Last Vital Signs Temp Pulse Resp BP Pulse Ox 98.3 F 82 19 127/82 100 04/27/19 06:12 04/27/19 06:12 04/27/19 06:12 04/27/19 06:12 04/27/19 06:12 ED Treatment Course - LABORATORY CBC & Chemistry Diagram: 04/27/19 06:37 04/27/19 06:37 Medical Decision Making - Medical Decision Making 04/27/19 07:43 Patient signed out by resident Dr. Anna. In short patient is a 29 year old with a historyof asthma and uti presenting with RLQ pelvic pain that started this AM. pending labs, urine, TVUS ED Course: Consider ectopic vs iup vs uti vs ovarian cyst vs torsion Labs wnl, urine pending Patient could not be located for TVUS ED was searched as well as waiting room and outside areas The patient's number on record was called twice but was connected to a bank in [place], [place]. At this time, it appears patient has eloped *DC/Admit/Observation/Transfer Diagnosis at time of Disposition: Right lower quadrant abdominal pain - Referrals Referrals: Erika Gillette MD [Primary Care Provider] - - Patient Instructions - Post Discharge Activity
[2019-04-27 07:25] LABS: ALBUMIN 3.4 g/dl (3.4-5.0); BILIRUBIN,TOTAL 0.2 mg/dL (0.2-1); BLOOD UREA NITROGEN 11.4 mg/dL (7-18); CREATININE 0.8 mg/dL (0.55-1.3); POTASSIUM 4.4 mmol/L (3.5-5.1)
[2019-04-27 08:55] LABS: URINE APPEARANCE BLOODY; URINE COLOR RED
[2019-04-27 11:44] LABS: EPI CELLS OCC /HPF (0-5/HPF); URINE RBC >100 /hpf (0-4)
[2019-04-27 11:45] LABS: URINE BACTERIA 2+ /hpf (NEGATIVE)
== END 2019-04-27 07:50 | disposition left against medical advice (07) ==
LOC: JER 05:59
DX: R10.31 Right lower quadrant pain (principal)
CPT/HCPCS: 36415; 80053; 81003; 84702; 85025; 87086; 87186; 99282-25

== ENCOUNTER 2019-08-19 00:38 | Emergency (ER) | payer OTHER ==
--- NOTE | 2019-08-19 01:04 | PDOC ---
Attending Attestation - Resident Resident Name: MaryNba - ED Attending Attestation I have performed the following: I have examined & evaluated the patient, The case was reviewed & discussed with the resident, I agree w/resident's findings & plan - HPI HPI: 08/19/19 01:26 see resident hpi - Physicial Exam PE: 08/19/19 01:26 see resident exam - Medical Decision Making 08/19/19 01:26 29-year-old female with cough sore throat and subjective fevers Exam most consistent with viral illness/laryngitis Plan for rapid strep Will DC pending results
--- NOTE | 2019-08-19 01:04 | PDOC ---
History of Present Illness - General Stated Complaint: THROAT PAIN Time Seen by Provider: 08/19/19 01:02 - History of Present Illness Initial Comments: 08/19/19 01:20 The patient is a 29 year old female with no significant PMH who presents for evaluation of sore throat, fevers, and cough. The patient reports a 3 day history of subjective fevers at home with sore throat and non-productive cough that has persistent prompting her presentation to the ED for further evaluation. She also notes that she has lost her voice as well. She otherwise denies recent travel, headache, SOB, chest pain, nausea, vomiting, abdominal pain, sick contacts, or changes with urination or bowel movements. Past History - Past Medical History Allergies/Adverse Reactions: Allergies Allergy/AdvReac Type Severity Reaction Status Date / Time No Known Allergies Allergy Verified 08/19/19 01:21 Home Medications: Ambulatory Orders Amoxicillin - [Amoxicillin 500mg Capsule -] 1,000 mg PO DAILY #14 capsule Asthma: Yes Cancer: No Cardiac Disorders: No COPD: No Diabetes: No HTN: No Seizures: No Thyroid Disease: No - Reproductive History Therapeutic (s) & number: No - Immunization History Immunization Up to Date: Yes - Psycho Social/Smoking Cessation Hx Smoking History: Never smoked Have you smoked in the past 12 months: No Number of Cigarettes Smoked Daily: 0 Hx Alcohol Use: No Drug/Substance Use Hx: No Substance Use Type: None Hx Substance Use Treatment: No Review of Systems - Review of Systems Comments:: 08/19/19 01:22 Constitutional: Subjective fevers. No chills, fatigue, malaise HEENT: Sore throat. No Rhinorrhea, nasal congestion, visual changes Cardiovascular: No chest pain, syncope, palpitations, lightheadedness Respiratory: Cough. No SOB, Hemoptysis, Gastrointestinal: No Abdominal pain, Nausea, Vomiting, Constipation, Diarrhea, Melena Genitourinary: No Dysuria, Frequency, Urgency, Hesitancy, Hematuria, Flank pain Musculoskeletal: No Myalgia, arthralgia Skin: No rashes, itching, bruising, pallor Neurologic: No Headache, Dizziness, Numbness, Weakness, or Tingling Psychiatric: No Hallucinations. No SI or HI *Physical Exam - Physical Exam 08/19/19 01:23 General Appearance: Nourished. No Apparent Distress HEENT: No Pharyngeal Erythema, Tonsillar Exudate, Tonsillar Erythema Neck: No Cervical Lymphadenopathy Respiratory/Chest: Lungs Clear, Normal Breath Sounds. No Crackles, Rales, Rhonchi, Wheezing Cardiovascular: Regular Rhythm, Regular Rate. No Murmur, Gallops, Rubs Gastrointestinal/Abdominal: Normal Bowel Sounds, Soft. No Guarding, Rebound, Tenderness Musculoskeletal: No CVA Tenderness Extremity: Normal Capillary Refill Integumentary: Normal Color, Dry, Warm Neurologic: Fully Oriented, Alert, Normal Mood/Affect, Normal Response, Medical Decision Making - Medical Decision Making 08/19/19 01:23 The patient is a 29 year old female with no significant PMH who presents for evaluation of sore throat, fevers, and cough. Given the patient's history and physical exam, we will obtain a rapid strep to evaluate further. We will treat with tylenol and continue to monitor and reassess while here in the ED. 08/19/19 01:44 Rapid strep was positive here in the ED. We are comfortable discharging the patient home in stable condition on Amoxacillin. Patient made aware of impression and plan, return precautions discussed including but not limited to worsening pain or symptoms, fevers, or signs of infection, chest pain, respiratory distress, inability to tolerate oral intake, dehydration, syncope, or neurologic changes. The patient is to follow up with PMD as recommended within 1 week, follow up information provided and the patient will call for an appointment. The patient is to take medications as instructed for duration of time and continue with supportive care, avoid triggers and precipitants. Patient is safe for outpatient follow-up. Discharge - Discharge Information Problems reviewed: Yes Clinical Impression/Diagnosis: Laryngitis, Strep pharyngitis Condition: Stable Disposition: HOME - Additional Discharge Information Prescriptions: Amoxicillin - [Amoxicillin 500mg Capsule -] 1,000 mg PO DAILY #14 capsule - Follow up/Referral Referrals: Erika Gillette MD [Primary Care Provider] - - Patient Discharge Instructions Patient Printed Discharge Instructions: DI for Laryngitis, DI for Strep Throat Additional Instructions: 1) Please follow-up with your primary care doctor in the next 2-3 days. Please call tomorrow to schedule a follow up appointment. If you cannot follow up with your doctor within 1 week please return to the Emergency Department for any urgent issues. 2) Your laboratory results were positive for strep throat here in the ER. 3) If you have any worsening of symptoms or any other concerns, please return to the ER immediately. Return if worsening symptoms including fevers, headache, vomiting, visual or hearing disturbances, abdominal pain, chest pain, shortness of breath, syncope, dehydration, inability to take things by mouth/vomiting, altered mental status, or worsening concerning symptoms. 4) Please continue taking your home medications as directed. Your medications on discharge include amoxacillin. Side effects may include upset stomach, abdominal pain, vomiting, or diarrhea. Do not drink alcohol with your medications. - Post Discharge Activity
[2019-08-19] MEDS ORDERED: ACETAMINOPHEN 500 MG TABLET (FP) PO ONE (01:17)
[2019-08-19 01:21] VITALS: BP 109/72; PULSE 98; TEMP 98.5; BMI 34.4
[2019-08-19] MEDS ORDERED: ACETAMINOPHEN 325 MG TABLET (FP) ONE (01:34)
== END 2019-08-19 02:11 | disposition home or self-care (01) ==
LOC: JER 00:38
DX: J02.0 Streptococcal pharyngitis (principal); J04.0 Acute laryngitis; J45.909 Unspecified asthma, uncomplicated
CPT/HCPCS: 87880; 99281-25

== ENCOUNTER 2019-10-17 11:59 | Emergency (ER) | payer OTHER ==
[2019-10-17 12:09] VITALS: BP 127/85; PULSE 89; TEMP 98.4; BMI 33.4
--- NOTE | 2019-10-17 12:34 | PDOC ---
History of Present Illness - General Chief Complaint: Eye Problem Stated Complaint: EYE PROBLEM Time Seen by Provider: 10/17/19 12:19 History Source: Patient Exam Limitations: No Limitations Past History - Past Medical History Allergies/Adverse Reactions: Allergies Allergy/AdvReac Type Severity Reaction Status Date / Time No Known Allergies Allergy Verified 08/19/19 01:21 Home Medications: Ambulatory Orders Amoxicillin - [Amoxicillin 500mg Capsule -] 1,000 mg PO DAILY #14 capsule Cephalexin Monohydrate [Keflex -] 500 mg PO Q8H #21 capsule 10/17/19 Sulfamethoxazole/Trimethoprim [Bactrim Ds -] 1 tab PO BID #14 tablet 10/17/19 Asthma: Yes Cancer: No Cardiac Disorders: No COPD: No Diabetes: No HTN: No Seizures: No Thyroid Disease: No - Reproductive History Therapeutic (s) & number: No - Immunization History Immunization Up to Date: Yes - Psycho Social/Smoking Cessation Hx Smoking History: Never smoked Have you smoked in the past 12 months: No Number of Cigarettes Smoked Daily: 0 Hx Alcohol Use: No Drug/Substance Use Hx: No Substance Use Type: None Hx Substance Use Treatment: No *Physical Exam - Vital Signs Last Vital Signs Temp Pulse Resp BP Pulse Ox 98.4 F 89 19 127/85 100 10/17/19 12:05 10/17/19 12:05 10/17/19 12:05 10/17/19 12:05 10/17/19 12:05 - Physical Exam General Appearance: No: Apparent Distress HEENT: positive: Other (+mild swelling and redness of R upper eyelid, no stye or chalazion noted, sclera clear, noninjected, no drainage or tearing from eyes , vision 20/25 R eye, 20/20 L eye (without patient's glasses), no pain with eye movement, no proptosis, no chemosis) Neurologic: positive: Alert Medical Decision Making - Medical Decision Making 29 y/o F hx of asthma presents with R upper eyelid swelling and redness x 3 days. Denies fever, eye pain, blurred vision, FB sensation, tearing/discharge, vomiting, pain with eye movement. Wears glasses. Possible developing periorbital cellulitis No evidence of stye on exam No concern for orbital cellulitis Will start on abx 10/17/19 12:27 Discharge - Discharge Information Problems reviewed: Yes Clinical Impression/Diagnosis: Periorbital cellulitis of right eye Condition: Stable Disposition: HOME - Admission No - Additional Discharge Information Prescriptions: Cephalexin Monohydrate [Keflex -] 500 mg PO Q8H #21 capsule Sulfamethoxazole/Trimethoprim [Bactrim Ds -] 1 tab PO BID #14 tablet Prescription Drug Monitoring Program (I-STOP) results: I-STOP not reviewed - Follow up/Referral Referrals: Erika Gillette MD [Primary Care Provider] - 2 Days - Patient Discharge Instructions Additional Instructions: Thank you for choosing [facility]. It was a pleasure taking care of you. Please take antibiotics as prescribed for eye infection You may also apply warm compresses as needed Please follow-up with your doctor in 2 days Return to the Emergency Department if your symptoms worsen or persist, you have fever, changes in vision, pain with eye movement, increased swelling/redness or other concerning symptoms. - Post Discharge Activity
== END 2019-10-17 13:07 | disposition home or self-care (01) ==
LOC: JERFT 11:59 → JER 11:59 → JERFT 13:07
DX: L03.213 Periorbital cellulitis (principal); Z87.09 Personal history of other diseases of the respiratory system
CPT/HCPCS: 99281-25

== ENCOUNTER 2019-11-26 11:09 | Emergency (ER) | payer OTHER ==
[2019-11-26 11:26] VITALS: BP 114/78; PULSE 78; TEMP 98.2; BMI 35.2
[2019-11-26] MEDS ORDERED: predniSONE 20 MG TABLET (UD) PO ONE (12:21)
[2019-11-26] MEDS ORDERED: diphenhydrAMINE HCL 25 MG CAPSULE (FP) PO ONE ×2 (12:21→12:31)
--- NOTE | 2019-11-26 12:21 | PDOC ---
History of Present Illness - General Chief Complaint: Rash Stated Complaint: RASH Time Seen by Provider: 11/26/19 11:41 History Source: Patient - History of Present Illness Initial Comments: 11/26/19 12:21 Chief complaint: Rash Patient is a healthy 29-year-old female with history of asthma, never on steroids who started with itchy rash last night, no known offending. No fever, no shortness of breath, no chest pain, no vomiting. Patient is complaining mostly of itching all over her body. She does not look acutely ill GENERAL/CONSTITUTIONAL: No fever, weakness. dizziness HEAD, EYES, EARS, NOSE AND THROAT: No change in vision. No ear pain or discharge. No sore throat. CARDIOVASCULAR: No chest pain RESPIRATORY: No shortness of breath or cough GASTROINTESTINAL: No pain, nausea, vomiting, diarrhea or constipation GENITOURINARY: No dysuria MUSCULOSKELETAL: No neck or back pain SKIN: + rash NEUROLOGIC: No headache, vertigo, loss of consciousness, or loss of sensation. GENERAL: The patient is awake, alert, and fully oriented, in no acute distress. HEAD: Normal with no signs of trauma. EYES: Pupils equal, round and reactive to light, sclera anicteric, conjunctiva clear. ENT: pharynx: no erythema, no exudate, uvula midline NECK: supple CHEST: clear, nontender, rr ABD: soft, nontender BACK: no tenderness or signs of injury EXTREMITIES: Normal range of motion, no edema. NEUROLOGICAL: Normal speech, normal gait. SKIN: Warm, Dry, diffusely blanchable pruritic rash, flat, no petechiae, purpura or vesicles. 11/26/19 12:37 Past History - Past Medical History Allergies/Adverse Reactions: Allergies Allergy/AdvReac Type Severity Reaction Status Date / Time No Known Allergies Allergy Verified 11/26/19 11:26 Home Medications: Ambulatory Orders Amoxicillin - [Amoxicillin 500mg Capsule -] 1,000 mg PO DAILY #14 capsule 08/19/19 Cephalexin Monohydrate [Keflex -] 500 mg PO Q8H #21 capsule 10/17/19 Sulfamethoxazole/Trimethoprim [Bactrim Ds -] 1 tab PO BID #14 tablet 10/17/19 predniSONE [Deltasone -] 40 mg PO DAILY #8 tablet 11/26/19 Asthma: Yes Cancer: No Cardiac Disorders: No COPD: No Diabetes: No HTN: No Seizures: No Thyroid Disease: No - Reproductive History Therapeutic (s) & number: No - Immunization History Immunization Up to Date: Yes - Psycho Social/Smoking Cessation Hx Smoking History: Never smoked Have you smoked in the past 12 months: No Number of Cigarettes Smoked Daily: 0 Information on smoking cessation initiated: No Hx Alcohol Use: No Drug/Substance Use Hx: No Substance Use Type: None Hx Substance Use Treatment: No *Physical Exam - Vital Signs Last Vital Signs Temp Pulse Resp BP Pulse Ox 98.2 F 78 19 114/78 98 11/26/19 11:23 11/26/19 11:23 11/26/19 11:23 11/26/19 11:23 11/26/19 11:23 Medical Decision Making - Medical Decision Making 11/26/19 12:37 Healthy 29-year-old female, well-appearing with 1 day of itchy rash. History of asthma never on steroids. No known offended. No other concerning clinical findings. Patient will get Benadryl, prednisone. Discussed issues, findings, results, applicable medications and treatments and follow-up. All these were understood and all questions were answered Discharge - Discharge Information Problems reviewed: Yes Clinical Impression/Diagnosis: Pruritic rash Condition: Stable Disposition: HOME - Additional Discharge Information Prescriptions: predniSONE [Deltasone -] 40 mg PO DAILY #8 tablet - Follow up/Referral Referrals: Erika Gillette MD [Primary Care Provider] - - Patient Discharge Instructions Patient Printed Discharge Instructions: DI for General Allergic Reactions Additional Instructions: Take benadryl 25-50 mg every 4 hours for itching take prednisone 40 mg once daily for anther 4 days, start tomorrow take pepcid 20 mg once daily which will help with the reaction and protect your stomach for any upset from the prednisone return to the er if short of breath, difficulty breathing, or getting worse. otherwise follow up with your doctor in 2-3 days - Post Discharge Activity Work/Back to School Note: Back to Work
[2019-11-26] MEDS ORDERED: predniSONE 20 MG TABLET (UD) ONE (12:31)
== END 2019-11-26 12:33 | disposition home or self-care (01) ==
LOC: JERFT 11:09
DX: L29.8 Other pruritus (principal); R21 Rash and other nonspecific skin eruption; J45.909 Unspecified asthma, uncomplicated
CPT/HCPCS: 99283-25

== ENCOUNTER 2021-03-06 22:14 | Emergency (ER) | payer OTHER ==
[2021-03-06 22:23] VITALS: BP 124/83; PULSE 98; TEMP 99.1; BMI 36.7
[2021-03-06] MEDS ORDERED: ONDANSETRON *ODT* 4 MG TABLET SL ONE (23:51)
[2021-03-06] MEDS ORDERED: FAMOTIDINE 20 MG TABLET PO ONE (23:51)
[2021-03-06] MEDS ORDERED: MAG HYDROX/AL HYDROX/SIMETH 30 ML UNIT-DOSE CUP PO ONE (23:51)
[2021-03-06] MEDS ORDERED: FAMOTIDINE 20 MG TABLET ONE (23:56)
[2021-03-06] MEDS ORDERED: ONDANSETRON *ODT* 4 MG TABLET ONE (23:56)
[2021-03-06] MEDS ORDERED: MAG HYDROX/AL HYDROX/SIMETH 30 ML UNIT-DOSE CUP ONE (23:57)
[2021-03-07 00:32] LABS: HCG,QUALITATIVE URINE Negative
[2021-03-07 00:33] LABS: EPI CELLS 20 /uL (0-25.1); HYALINE CASTS 2 /uL (0-3.1); PH,URINE 6.5 (5.0-8.0); URINE APPEARANCE CLEAR; URINE BACTERIA 5624 /uL (0-1359); URINE BILIRUBIN NEGATIVE (NEGATIVE); URINE COLOR YELLOW; URINE GLUCOSE (UA) NEGATIVE (NEGATIVE); URINE KETONE NEGATIVE (NEGATIVE); URINE LEUK ESTERASE NEGATIVE (NEGATIVE); URINE NITRITE POSITIVE (NEGATIVE); URINE PROTEIN NEGATIVE (NEGATIVE); URINE RBC 32 /uL (0-23.9)
[2021-03-07 04:33] LABS: YEAST NONE SEEN (NEGATIVE)
== END 2021-03-07 00:51 | disposition home or self-care (01) ==
LOC: JER 22:14
DX: K29.70 Gastritis, unspecified, without bleeding (principal); N30.00 Acute cystitis without hematuria
CPT/HCPCS: 81003; 84703; 99283-25

== ENCOUNTER 2021-08-14 02:15 | Emergency (ER) | payer OTHER ==
[2021-08-14 03:09] VITALS: BMI 35.4
[2021-08-14] MEDS ORDERED: SODIUM CHLORIDE 0.9% 500 ML INFUS.BAG IV ONE (03:21)
[2021-08-14] MEDS ORDERED: ACETAMINOPHEN 1000 MG/100 ML BAG IVPB ONE (03:22)
[2021-08-14] MEDS ORDERED: ACETAMINOPHEN INJECTION 100 ML IVPB ONE (03:31)
[2021-08-14 04:23] LABS: URINE APPEARANCE CLEAR; URINE BILIRUBIN NEGATIVE (NEGATIVE); URINE COLOR YELLOW; URINE GLUCOSE (UA) NEGATIVE (NEGATIVE); URINE KETONE TRACE (NEGATIVE); URINE LEUK ESTERASE NEGATIVE (NEGATIVE); URINE NITRITE NEGATIVE (NEGATIVE); URINE PROTEIN NEGATIVE (NEGATIVE); URINE UROBILINOGEN 0.2 mg/dL (0.2-1.0)
[2021-08-14 04:26] LABS: HCG,QUALITATIVE URINE Negative
[2021-08-14] MEDS ORDERED: KETOROLAC TROMETHAMINE 15 MG/ML VIAL IVPUSH ONE (04:27)
[2021-08-14] MEDS ORDERED: METHOCARBAMOL 500 MG TABLET PO ONE (04:40)
[2021-08-14] MEDS ORDERED: KETOROLAC TROMETHAMINE 15 MG/ML VIAL ONE (05:03)
[2021-08-14] MEDS ORDERED: METHOCARBAMOL 500 MG TABLET ONE (05:03)
[2021-08-14 05:38] VITALS: BP 134/64; PULSE 85
[2021-08-14 06:02] VITALS: TEMP 98.5
== END 2021-08-14 06:18 | disposition home or self-care (01) ==
LOC: JER 02:15
PROC: 3E0333Z Introduction of Anti-inflammatory into Peripheral Vein, Percutaneous Approach (ICD-10-PCS; principal; 2021-08-14)
PROC: 3E0333Z Introduction of Anti-inflammatory into Peripheral Vein, Percutaneous Approach (ICD-10-PCS; 2021-08-14)
DX: N23 Unspecified renal colic (principal)
CPT/HCPCS: 81003; 84703; 87086; 87186; 96374; 96375; 99284-25

== ENCOUNTER 2021-12-28 14:19 | Emergency (ER) | payer OTHER ==
[2021-12-28 14:29] VITALS: BP 125/84; PULSE 106; TEMP 98.1; BMI 35.7
[2021-12-28] MEDS ORDERED: SODIUM CHLORIDE 0.9% 500 ML INFUS.BAG IV ONE (15:12)
[2021-12-28] MEDS ORDERED: ACETAMINOPHEN 1000 MG/100 ML BAG IVPB ONE (15:12)
[2021-12-28] MEDS ORDERED: ACETAMINOPHEN INJECTION 100 ML IVPB ONE (15:17)
[2021-12-28 15:38] LABS: HCG,QUALITATIVE URINE Negative
[2021-12-28 15:41] LABS: EPI CELLS 15 /uL (0-25.1); HYALINE CASTS 1 /uL (0-3.1); URINE APPEARANCE CLOUDY; URINE BACTERIA 4076 /uL (0-1359); URINE BILIRUBIN NEGATIVE (NEGATIVE); URINE COLOR YELLOW; URINE GLUCOSE (UA) NEGATIVE (NEGATIVE); URINE KETONE NEGATIVE (NEGATIVE); URINE LEUK ESTERASE 3+ (NEGATIVE); URINE NITRITE POSITIVE (NEGATIVE); URINE PROTEIN TRACE (NEGATIVE); URINE RBC 36 /uL (0-23.9); URINE UROBILINOGEN 0.2 mg/dL (0.2-1.0); URINE WBC 1258 /uL (0-25.8)
[2021-12-28 16:07] LABS: BASO % 0.9 % (0-2.0); HEMOGLOBIN 13.8 GM/dL (10.7-15.3); LYMPH % 24.4 % (8-40); MCH 26.8 pg (25.7-33.7); MCHC 32.9 g/dl (32.0-36.0); MEAN CELL VOLUME 81.2 fl (80-96); MEAN PLT VOLUME 9.9 fl (7.5-11.1); MONO % 6.7 % (3.8-10.2); PLATELET COUNT 325 10^3/uL (134-434); RBC 5.17 M/mm3 (3.60-5.2); RDW 13.2 % (11.6-15.6); WHITE BLOOD COUNT 7.5 K/mm3 (4.0-10.0)
[2021-12-28 16:30] LABS: CALCIUM 9.2 mg/dL (8.5-10.1)
[2021-12-28 16:31] LABS: BLOOD UREA NITROGEN 10.2 mg/dL (7-18)
[2021-12-28 16:34] LABS: CREATININE 0.8 mg/dL (0.55-1.3)
[2021-12-28 16:36] LABS: BILIRUBIN,TOTAL 0.3 mg/dL (0.2-1); TOT PROT 7.5 g/dl (6.4-8.2)
[2021-12-28] MEDS ORDERED: CEFTRIAXONE 1,000 MG in DEXTROSE 5%-WATER - 50 ML IVPB ONE (16:41)
[2021-12-28] MEDS ORDERED: CEFTRIAXONE 1 GM/50 ML BAG ONE (16:59)
[2021-12-28] MEDS ORDERED: KETOROLAC TROMETHAMINE 15 MG/ML VIAL IVPUSH ONE (18:22)
[2021-12-28] MEDS ORDERED: KETOROLAC TROMETHAMINE 15 MG/ML VIAL ONE (18:39)
== END 2021-12-28 18:52 | disposition home or self-care (01) ==
LOC: JER 14:19
PROC: 3E0333Z Introduction of Anti-inflammatory into Peripheral Vein, Percutaneous Approach (ICD-10-PCS; principal; 2021-12-28)
PROC: 3E03329 Introduction of Other Anti-infective into Peripheral Vein, Percutaneous Approach (ICD-10-PCS; 2021-12-28)
PROC: 3E0333Z Introduction of Anti-inflammatory into Peripheral Vein, Percutaneous Approach (ICD-10-PCS; 2021-12-28)
DX: N30.00 Acute cystitis without hematuria (principal)
CPT/HCPCS: 36415; 76705-TC; 80053; 81003; 84703; 85025; 87086; 87186; 99284-25

== ENCOUNTER 2021-12-29 10:18 | Emergency (ER) | payer OTHER ==
[2021-12-29] MEDS ORDERED: SODIUM CHLORIDE 0.9% 1000 ML INFUS.BAG IV ONE (10:26)
[2021-12-29 10:35] VITALS: BMI 36.1
[2021-12-29 11:41] LABS: HEMATOCRIT 39.6 % (32.4-45.2); HEMOGLOBIN 13.3 G/dL (10.7-15.3); MCH 27.3 pg (25.7-33.7); MCHC 33.6 g/dl (32.0-36.0); MEAN CELL VOLUME 81.4 fl (80-96); MEAN PLT VOLUME 9.9 fl (7.5-11.1); PLATELET COUNT 347.4 10^3/uL (134-434); RBC 4.86 10^6/uL (3.60-5.2); RDW 14.6 % (11.6-15.6); WHITE BLOOD COUNT 8.1 10^3/uL (4.0-10.8)
[2021-12-29 11:46] LABS: ALBUMIN 2.9 g/dl (3.4-5.0); BILIRUBIN,TOTAL 0.6 mg/dl (0.2-1); CALCIUM 8.6 mg/dl (8.5-10); CREATININE 0.8 mg/dl (0.55-1.3); TOT PROT 6.9 g/dl (6.4-8.2)
[2021-12-29 11:47] LABS: HCG,QUALITATIVE URINE Negative
[2021-12-29 12:01] LABS: EPITHELIAL CELLS MODERATE /hpf
[2021-12-29] MEDS ORDERED: KETOROLAC TROMETHAMINE 15 MG/ML VIAL IVPUSH ONE (12:18)
[2021-12-29] MEDS ORDERED: KETOROLAC TROMETHAMINE 15 MG/ML VIAL ONE (12:24)
[2021-12-29 13:12] VITALS: BP 118/72; PULSE 89; TEMP 98.4
[2021-12-29 14:12] LABS: ANISOCYTOSIS 1+; PLATELET ESTIMATE ADEQUATE
== END 2021-12-29 13:27 | disposition home or self-care (01) ==
LOC: FER 10:18
PROC: 3E033GC Introduction of Other Therapeutic Substance into Peripheral Vein, Percutaneous Approach (ICD-10-PCS; principal; 2021-12-29)
DX: N12 Tubulo-interstitial nephritis, not specified as acute or chronic (principal); N30.01 Acute cystitis with hematuria
CPT/HCPCS: 36415; 74176-TC; 80053; 81003; 81015; 84703; 85027; 87086; 99285-25

== ENCOUNTER 2022-11-13 22:47 | Emergency (ER) | payer OTHER ==
[2022-11-13 23:08] VITALS: BP 122/84; PULSE 95; RESP 16; TEMP 98.7; BMI 38.2
[2022-11-13 23:31] LABS: EPITHELIAL CELLS MANY /hpf
[2022-11-14] MEDS ORDERED: KETOROLAC TROMETHAMINE 30 MG/1 ML VIAL IM ONE (00:53)
[2022-11-14] MEDS ORDERED: CIPROFLOXACIN 250 MG TABLET (RESTRICTED TO ID) PO ONE (00:54)
[2022-11-14] MEDS ORDERED: CIPROFLOXACIN 500 MG TABLET (RESTRICTED TO ID) PO ONE (00:54)
[2022-11-14] MEDS ORDERED: KETOROLAC TROMETHAMINE 30 MG/1 ML VIAL ONE (00:54)
== END 2022-11-14 01:06 | disposition home or self-care (01) ==
LOC: FER 22:47
PROC: 3E023GC Introduction of Other Therapeutic Substance into Muscle, Percutaneous Approach (ICD-10-PCS; principal; 2022-11-13)
DX: N30.00 Acute cystitis without hematuria (principal)
CPT/HCPCS: 74176-TC; 81003; 81015; 84703; 87086; 87186; 96372; 99285-25

== ENCOUNTER 2023-01-10 22:52 | Emergency (ER) | payer OTHER ==
[2023-01-10 23:03] VITALS: BP 130/89; PULSE 87; RESP 16; TEMP 98.6; BMI 38.2
[2023-01-10 23:27] LABS: HEMATOCRIT 50.2 % (32.4-45.2); HEMOGLOBIN 16.4 G/dL (10.7-15.3); MCH 27.4 pg (25.7-33.7); MCHC 32.6 g/dl (32.0-36.0); MEAN CELL VOLUME 84.3 fl (80-96); MEAN PLT VOLUME 10.4 fl (7.5-11.1); PLATELET COUNT 316.2 10^3/uL (134-434); RBC 5.96 10^6/uL (3.60-5.2); RDW 14.5 % (11.6-15.6)
[2023-01-10 23:48] LABS: ALBUMIN 3.9 g/dl (3.4-5.0); BILIRUBIN,TOTAL 0.6 mg/dl (0.2-1); CALCIUM 9.1 mg/dl (8.5-10); CREATININE 0.8 mg/dl (0.55-1.3); TOT PROT 7.8 g/dl (6.4-8.2)
[2023-01-11] MEDS ORDERED: MAGNESIUM CITRATE 300 ML BOTTLE ONE (00:25)
[2023-01-11] MEDS ORDERED: CITRIC ACID/SODIUM CITRATE 30 ML UNIT-DOSE CUP PO ONE (00:27)
== END 2023-01-11 00:40 | disposition home or self-care (01) ==
LOC: FER 22:52
DX: K59.00 Constipation, unspecified (principal); R10.9 Unspecified abdominal pain
CPT/HCPCS: 36415; 74019-TC-FY; 80053; 85027; 99284-25

== ENCOUNTER 2023-09-12 20:38 | Emergency (ER) | payer OTHER ==
[2023-09-12 21:01] VITALS: BP 129/63; PULSE 93; RESP 18; TEMP 98; BMI 36.8
== END 2023-09-12 21:54 | disposition home or self-care (01) ==
LOC: FER 20:38
DX: R05.9 Cough, unspecified (principal); R09.81 Nasal congestion; J06.9 Acute upper respiratory infection, unspecified; Z20.822 Contact with and (suspected) exposure to COVID-19
CPT/HCPCS: 0241U-QW; 99283-25

== ENCOUNTER 2024-05-03 19:54 | Emergency (ER) | payer OTHER ==
[2024-05-03 20:05] VITALS: BP 123/81; PULSE 88; RESP 16; TEMP 98.7; BMI 39.4
[2024-05-03 20:17] LABS: HCG,QUALITATIVE URINE Negative
[2024-05-03] MEDS ORDERED: IBUPROFEN 600 MG TABLET (FP) PO ONE (20:40)
[2024-05-03] MEDS: IBUPROFEN 600 MG TABLET (FP) PO ONE (20:41)
[2024-05-03 20:45] LABS: EPITHELIAL CELLS 0-5 /hpf
== END 2024-05-03 21:47 | disposition home or self-care (01) ==
LOC: FER 19:54
DX: R50.9 Fever, unspecified (principal); M54.50 Low back pain, unspecified; Z20.822 Contact with and (suspected) exposure to COVID-19
CPT/HCPCS: 0241U-QW; 81003; 81015; 84703; 87651; 99283-25

== ENCOUNTER 2024-06-23 05:30 | Emergency (ER) | payer OTHER ==
[2024-06-23 05:35] VITALS: BP 137/82; PULSE 84; RESP 18; TEMP 97.7; BMI 37.0
[2024-06-23] MEDS: LACTATED RINGERS SOLUTION 1,000 ML/1,000 ML INFUS.BAG IV ONE (07:12)
[2024-06-23] MEDS ORDERED: KETOROLAC TROMETHAMINE 15 MG/ML VIAL ONE (09:01)
[2024-06-23 09:02] LABS: EPI CELLS 23 /uL (0-25.1); HYALINE CASTS 4 /uL (0-3.1); PH,URINE 5.5 (5.0-8.0); URINE APPEARANCE CLEAR; URINE BACTERIA >9,000 /uL (0-1359); URINE BILIRUBIN NEGATIVE (NEGATIVE); URINE COLOR YELLOW; URINE GLUCOSE (UA) NEGATIVE (NEGATIVE); URINE KETONE NEGATIVE (NEGATIVE); URINE LEUK ESTERASE TRACE (NEGATIVE); URINE NITRITE POSITIVE (NEGATIVE); URINE PROTEIN NEGATIVE (NEGATIVE); URINE RBC 26 /uL (0-23.9); URINE UROBILINOGEN 0.2 mg/dL (0.2-1.0); URINE WBC 79 /uL (0-25.8)
[2024-06-23] MEDS: KETOROLAC TROMETHAMINE 15 MG/ML VIAL IVPUSH ONE (09:02)
[2024-06-23 09:13] LABS: HEMATOCRIT 42.2 % (32.4-45.2); HEMOGLOBIN 13.3 G/dL (10.7-15.3); MCH 26.8 pg (25.7-33.7); MCHC 31.5 g/dl (32.0-36.0); MEAN CELL VOLUME 85.1 fl (80-96); MEAN PLT VOLUME 9.9 fl (7.5-11.1); PLATELET COUNT 286.5 10^3/uL (134-434); RBC 4.96 10^6/uL (3.60-5.2); RDW 15.1 % (11.6-15.6); WHITE BLOOD COUNT 4.9 10^3/uL (4.0-10.8)
[2024-06-23 09:17] LABS: HCG,QUALITATIVE URINE Negative
[2024-06-23 09:28] LABS: BASO % 0.7 % (0-2.0); EOS % 2.1 % (0-4.5); HEMATOCRIT 41.9 % (32.4-45.2); MCH 27.6 pg (25.7-33.7); MCHC 33.5 g/dl (32.0-36.0); MEAN CELL VOLUME 82.3 fl (80-96); MEAN PLT VOLUME 10.9 fl (7.5-11.1); MONO % 7.3 % (3.8-10.2); NEUT % 33.9 % (42.8-82.8); PLATELET COUNT 432 10^3/uL (134-434); RBC 5.09 M/mm3 (3.60-5.2); RDW 14.2 % (11.6-15.6); WHITE BLOOD COUNT 5.4 K/mm3 (4.0-10.0)
[2024-06-23 09:29] LABS: EPITHELIAL CELLS 0-5 /hpf
[2024-06-23 09:32] LABS: ALBUMIN 3.3 g/dl (3.4-5.0); ALK PHOS 56 U/L (45-117); ANION GAP 4 mmol/L (4-13); BILIRUBIN,TOTAL 0.2 mg/dl (0.2-1); CALCIUM 8.5 mg/dl (8.5-10.1); CHLORIDE 104 mmol/L (98-107); CO2 28 mmol/L (21-32); CREATININE 0.7 mg/dl (0.6-1.3); GLUCOSE,RANDOM 88 mg/dl (74-106); SGOT/AST 14 U/L (15-37); SGPT/ALT 18 U/L (7-52); SODIUM 136 mmol/L (136-145); TOT PROT 5.9 g/dl (6.4-8.2)
[2024-06-23 09:41] LABS: PLATELET ESTIMATE ADEQUATE
== END 2024-06-23 10:30 | disposition home or self-care (01) ==
LOC: FER 05:30
PROC: 3E0333Z Introduction of Anti-inflammatory into Peripheral Vein, Percutaneous Approach (ICD-10-PCS; principal; 2024-06-23)
DX: R10.31 Right lower quadrant pain (principal); K59.00 Constipation, unspecified; R10.2 Pelvic and perineal pain
CPT/HCPCS: 36415; 74177-TC; 76830-TC; 80053; 81003; 81015; 81025; 84703; 85025; 85027; 87086; 87186; 96374; 99285-25